=== PATIENT | male | born 1980 | race African-American/Black ===

== ENCOUNTER 2020-11-18 13:05 | Emergency (ER) | payer OTHER ==
[~2020-11-18] VITALS: Ht 182.9 cm; Wt 81.7 kg
[2020-11-18 13:16] VITALS: BP 119/86
[2020-11-18 13:22] LABS: URINE BILIRUBIN NEGATIVE (Negative); URINE BLOOD NEGATIVE (Negative); URINE CLARITY CLEAR; URINE COLOR YELLOW; URINE GLUCOSE-RANDOM* NEGATIVE (Negative); URINE KETONES 2+ (Negative); URINE LEUKOCYTES-REFLEX NEGATIVE (Negative); URINE NITRITE-REFLEX NEGATIVE (Negative); URINE PROTEIN (DIPSTICK) NEGATIVE (Negative); URINE SPECIFIC GRAVITY >= 1.030 (1.005-1.035); URINE UROBILINOGEN 0.2 E.U./dl (0.2-1.0)
== END 2020-11-18 13:27 | disposition home or self-care (01) ==
LOC: ER 13:05
PROVIDERS: Nurse Practitioner
DX: Z11.3 Encounter for screening for infections with a predominantly sexual mode of transmission (principal); F17.210 Nicotine dependence, cigarettes, uncomplicated; Z88.6 Allergy status to analgesic agent; Z91.030 Bee allergy status

== ENCOUNTER 2020-12-08 09:14 | Emergency (ER) | payer OTHER ==
[~2020-12-08] VITALS: Ht 182.9 cm; Wt 95.3 kg
[2020-12-08 10:13] LABS: BASOPHILS 0.7 % (0.0-2.0); EOSINOPHILS 4.3 % (0.0-3.0); HEMATOCRIT 41.7 % (42.0-52.0); HEMOGLOBIN 13.5 gm/dL (14.0-18.0); LYMPHOCYTES 24.8 % (24.0-44.0); MCH 28.8 pg (26.0-34.0); MCHC 32.4 g/dL (28.0-37.0); MONOCYTES 9.7 % (1.0-8.0); PLATELET COUNT 252 thou/uL (150-400); POLYS 60.5 % (36.0-66.0); RBC 4.68 mil/uL (4.50-6.00); RDW 12.8 % (10.5-14.5); WBC 6.7 thou/uL (4.0-11.0)
[2020-12-08 10:23] LABS: CALCIUM 8.7 mg/dL (8.5-10.1); CREATININE 1.1 mg/dL (0.7-1.3); POTASSIUM 3.6 mmol/L (3.5-5.1)
[2020-12-08 10:28] LABS: ALBUMIN 3.7 g/dL (3.4-5.0); TOTAL BILIRUBIN 0.3 mg/dL (0.2-1.0); TOTAL PROTEIN 6.4 g/dL (6.4-8.2)
[2020-12-08 13:30] LABS: URINE BILIRUBIN NEGATIVE (Negative); URINE BLOOD NEGATIVE (Negative); URINE CLARITY CLEAR; URINE COLOR YELLOW; URINE GLUCOSE-RANDOM* NEGATIVE (Negative); URINE KETONES NEGATIVE (Negative); URINE LEUKOCYTES-REFLEX NEGATIVE (Negative); URINE NITRITE-REFLEX NEGATIVE (Negative); URINE PROTEIN (DIPSTICK) NEGATIVE (Negative); URINE UROBILINOGEN 0.2 E.U./dl (0.2-1.0)
[2020-12-08 15:06] VITALS: BP 101/58
== END 2020-12-08 15:07 | disposition home or self-care (01) ==
LOC: ER 09:14
PROVIDERS: Emergency Medicine
DX: R10.9 Unspecified abdominal pain (principal); F17.210 Nicotine dependence, cigarettes, uncomplicated; Z88.6 Allergy status to analgesic agent; Z91.030 Bee allergy status